=== PATIENT | male | born 1980 | race American Indian/Alaskan Native ===

== ENCOUNTER 2017-11-03 08:22 | Day surgery (SDC) | payer MEDICAID ==
[2017-11-03] MEDS ORDERED: Acetaminophen-Codeine 300/30 mg Tab PO PRN (08:48)
[2017-11-03] MEDS ORDERED: Dextrose 5%/0.45% NS 1,000 ML IV SCH (09:00)
[2017-11-03] MEDS ORDERED: Lactated Ringer's 500 ML IV ONE (09:40)
[2017-11-03] MEDS ORDERED: Propofol 10 mg/ml Inj (20 ML) ONE (09:46)
[2017-11-03] MEDS ORDERED: Midazolam 2 MG/2 ML VIAL ONE (09:46)
[2017-11-03] MEDS ORDERED: ceFAZolin IV 2 gm in Dextrose 2 GM/50 ML BAG IVPB ONE (09:49)
[2017-11-03] MEDS ORDERED: Lidocaine 2% w Epi 1:100,000 Inj IJ ONE (09:50)
[2017-11-03] MEDS ORDERED: Oxymetazoline 0.05% Nasal Spray (30 ml) NS ONE (09:50)
[2017-11-03] MEDS ORDERED: Succinylcholine Chloride 20 mg/ml Syr (5 ml) IV ONE (09:53)
[2017-11-03] MEDS ORDERED: White Petrolatum/Mineral Oil Ophth Oint(3.5 gm) ONE (10:06)
[2017-11-03] MEDS ORDERED: HYDROmorphone 0.5 mg/0.5 ml ISec IVP PRN (10:40)
[2017-11-03] MEDS ORDERED: Lactated Ringer's 1,000 ML IV SCH (10:45)
[2017-11-03 12:34] VITALS: BP 140/90; PULSE 71; RESP 20; TEMP 97.7; O2SAT 97
--- NOTE | 2017-11-03 15:03 | OP ---
PROCEDURE DATE: 11/03/2017 PREOPERATIVE DIAGNOSES: Possible throat mass and nasopharyngeal mass. POSTOPERATIVE DIAGNOSES: Possible throat mass and nasopharyngeal mass. PROCEDURE: Nasal endoscopy with nasopharyngeal mass biopsy and direct laryngoscopy with biopsy. SIGNIFICANT FINDINGS: Nasopharyngeal mass, no masses or lesions noted in the throat. DESCRIPTION OF PROCEDURE: The patient was brought into the room, placed in supine position. Anesthesia was initiated through an ET tube. The patient was draped in the usual manner. Afrin-soaked pledgets were inserted into the right nasal cavity that remained there for at least 5 minutes and removed. A 0-degree scope was inserted into the right nasal cavity, past down through the nasopharynx. The nasopharyngeal mass was noted. Multiple biopsies were taken. Bleeding was controlled using suction cautery. Next, the scope was removed. Shoulder roll was placed and neck extended. A 00:53 was placed over the upper teeth in order to protect them and remained there until the end of the case. Direct laryngoscope was inserted into the oral cavity, past through the oropharynx and hypopharynx. The base of tongue, vallecula, epiglottis, AE folds, false cords, true cords, piriform sinuses, pharyngeal hughes, arytenoids were brought into view. No masses or lesions were noted. Multiple biopsies of the right and left vallecula were taken. Bleeding was controlled using cold water irrigation. Direct laryngoscope was removed. The was removed. The patient was taken off anesthesia and taken to the recovery room in stable manner. Vince Francisco MD
== END 2017-11-03 12:45 | disposition home or self-care (01) ==
LOC: C.SDS 08:22
PROVIDERS: ATTEND Otolaryngology
DX: J39.2 Other diseases of pharynx (principal); J31.1 Chronic nasopharyngitis
CPT/HCPCS: 31231; 31535; 88304; 88342; J0690; J2250; J2704; J3010; J7030; J7120